=== PATIENT | female | born 1975 | race Caucasian/White ===

== ENCOUNTER → 2020-06-18 08:33 | Outpatient (BNVA) | payer OTHER, SELFPAY | PROVIDERS: Family Provider Family Medicine; Referring Provider Dermatology; Visit Provider Podiatrist Foot & Ankle Surgery | DX: M21.41 Flat foot [pes planus] (acquired), right foot (principal) | CPT/HCPCS: 73630 ==

== ENCOUNTER 2021-01-21 15:46 | Outpatient (CLI) | payer SELFPAY ==
--- NOTE | 2021-01-21 15:51 | XR_ITS ---
WS: [id number] RIGHT SHOULDER: 3 VIEW(S) TECHNIQUE: Internal and external rotation with Y view. HISTORY: SHOULDER JOINT PAIN, RIGHT COMPARISON: None available. No fracture or dislocation or soft tissue abnormality. Glenohumeral and AC joints are unremarkable. XR/XR shoulder RT min 2V* 10001 IMPRESSION: Normal RIGHT shoulder.
== END 2021-01-21 15:47 | disposition home or self-care (01) ==
PROVIDERS: Visit Provider Family Medicine
DX: M25.511 Pain in right shoulder (principal)
CPT/HCPCS: 73030